=== PATIENT | male | born 1990 | race African-American/Black ===

== ENCOUNTER 2019-08-20 14:57 | Emergency (ER) | payer SELFPAY ==
[~2019-08-20] VITALS: Ht 175.3 cm; Wt 81.6 kg
[2019-08-20 15:10] VITALS: BP 132/78
== END 2019-08-20 15:48 | disposition home or self-care (01) ==
LOC: ER 14:57
DX: J30.9 Allergic rhinitis, unspecified (principal); J32.9 Chronic sinusitis, unspecified; F17.210 Nicotine dependence, cigarettes, uncomplicated